=== PATIENT | female | born 1945 | race Asian ===

== ENCOUNTER 2018-08-08 12:32 | Outpatient (CLI) | payer OTHER | END 2018-08-08 22:24 | disposition home or self-care (01) | LOC: RAD 12:32 | DX: R05 Cough (principal) ==

== ENCOUNTER 2020-05-20 14:39 | Emergency (ER) | payer OTHER ==
[~2020-05-20] VITALS: Ht 154.9 cm; Wt 86.6 kg
[2020-05-20 17:06] VITALS: BP 180/100; TEMP 98.2
== END 2020-05-20 17:06 | disposition home or self-care (01) ==
LOC: ED 14:39
DX: S40.012A Contusion of left shoulder, initial encounter (principal); S80.02XA Contusion of left knee, initial encounter; W10.1XXA Fall (on)(from) sidewalk curb, initial encounter; Y92.512 Supermarket, store or market as the place of occurrence of the external cause
CPT/HCPCS: 96372; 99283; J1885

== ENCOUNTER 2020-07-07 16:24 | Outpatient (CLI) | payer OTHER | END 2020-07-07 23:50 | disposition home or self-care (01) | LOC: RAD 16:24 | PROVIDERS: ATTEND Family Medicine | DX: M25.532 Pain in left wrist (principal); R29.898 Other symptoms and signs involving the musculoskeletal system; I10 Essential (primary) hypertension; R73.03 Prediabetes ==

== ENCOUNTER 2021-03-01 10:52 | Outpatient (CLI) | payer OTHER | END 2021-03-01 20:36 | disposition home or self-care (01) | LOC: MAMMO 10:52 | PROVIDERS: ATTEND Family Medicine | DX: Z13.820 Encounter for screening for osteoporosis (principal); Z78.0 Asymptomatic menopausal state; Z12.31 Encounter for screening mammogram for malignant neoplasm of breast ==

== ENCOUNTER 2021-09-20 08:13 | Outpatient (CLI) | payer OTHER | END 2021-09-20 21:33 | disposition home or self-care (01) | LOC: RAD 08:13 | PROVIDERS: ATTEND Family Medicine | DX: M25.531 Pain in right wrist (principal) ==

== ENCOUNTER 2022-04-13 12:41 | Outpatient (CLI) | payer OTHER ==
[2022-04-13 13:41] LABS: POTASSIUM 4.1 mmol/L (3.6-5.2)
== END 2022-04-13 19:08 | disposition home or self-care (01) ==
LOC: LABW 12:41
PROVIDERS: ATTEND Family Medicine
DX: I10 Essential (primary) hypertension (principal)
CPT/HCPCS: 36415; 80053; 81002

== ENCOUNTER 2022-11-12 09:44 | Outpatient (CLI) | payer OTHER | END 2022-11-12 19:22 | disposition home or self-care (01) | LOC: RAD 09:44 | PROVIDERS: ATTEND Family Medicine | DX: M54.59 Other low back pain (principal); M25.562 Pain in left knee ==